=== PATIENT | female | born 1990 | race Caucasian/White ===

== ENCOUNTER 2017-03-10 01:45 | Inpatient (IN) ==
[2017-03-10] MEDS ORDERED: Ringers Solution, Lactated 1,000 ML ONE (02:08)
[2017-03-10] MEDS ORDERED: Oxytocin 20 units/ LR 1000 mL 20 UNIT/1,000 ML BAG IVC ONE ×2 (03:32→05:38)
[2017-03-10] MEDS ORDERED: Naloxone 0.4 MG/ML INJ IVP PRN (04:25)
[2017-03-10] MEDS ORDERED: Ringers Solution, Lactated 1,000 ML IVC SCH (04:30)
--- NOTE | 2017-03-10 04:36 | OB/GYN History & Physical ---
Date of Encounter: 03/10/17 Time of Encounter: 04:33 Assessment and Plan (1) 38 weeks gestation of Current visit: Yes Status: Acute Patient admitted for delivery (2) Spontaneous onset of labor Current visit: Yes Status: Acute Admitted for delivery Patient requests to be discharged home maile following delivery History of Present Illness Chief complaint: Spontaneous labor HPI: Ms. vernon is a 26 year old female that presented to labor and delivery 10 cm dilated. Patient had been at the birthing center with chain sales consultant and had been complete and pushed there for 2-3 hours and BP started to elevate some chain sales consultant felt she should bring patient to hospital for delivery. Patient's water SROM at 2046 clear and a moderate amount of fluid. Patient had care and brought records. Blood type: A+ and GBS was negative. Past Med Surg Social Fam HX - Past Medical History Source: patient Medical history: no medical history Psychiatric history: no psych history - Past Surgical History Surgical History: no surgical history - Social History Smoking Status: Never smoker Smokeless Tobacco Status: No Alcohol use: none Drug use: none Current living situation: Home - Independent Activity Level: Independent ambulation Recent Out of Country Travel Within the Last 8 Weeks: No Exposure or Possible Exposure to Illness During Travel: No Obstetrical History - Pregnancies : 1 Para: 0 Term: 0 : 0 Ab's: 0 Livin Review of System OB - Constitutional Constitutional ROS IM: no chills, no fever(s) - Cardiovascular Cardiovascular: no chest pain, no irregular heart rhythm, no palpitations, no pedal edema, no rapid heart rate, no syncope - Respiratory Respiratory: no cough - Gastrointestinal Gastrointestinal: no diarrhea, no heartburn, no nausea, no vomiting - Genitourinary Genitourinary: no abnormal vaginal bleeding, no dysuria, no flank pain Exam - Constitutional Constitutional: well developed, well nourished, average body habitus - HEENT HEENT: Normocephaly, Mucus Membranes Moist - Neck Neck exam: full ROM, supple - Lungs Respiratory exam: CTAB - Cardiovascular Cardiovascular exam: RRR, +S1, +S2 - Abdomen Abdomen: Present: bowel sounds normal, gravid, non tender - Extremities Extremities exam: full ROM, normal capillary refill, normal inspection Deep Tendon Reflex Grade: 2+ Normal - Anus/Rectum Anus/Rectum: Present: normal perianal skin (FHR 140 bpm moderate variability + 15x15 accels no decels noted. Cat. 1 tracing) Results All other labs normal. - VTE Reasons for not Prescribing Prophylaxis: Treatment not Indicated - Low risk for VTE
--- NOTE | 2017-03-10 04:42 | OB/GYN Procedure Note ---
Delivery - Delivery Date: 03/10/17 Provider: Marisa Garcia Intrapartum events: none Delivery induction: none Delivery monitor: external FHT, external uterine Anesthesia: local Estimated Blood Loss: 400 - Infant (s) A Infant Delivery Date: 03/10/17 Delivery Time: 03:32 Presentation: vertex Position: BERTRAND Route of delivery: Gender: Female Viability: Viable Pounds: 8 Ounces: 1 Weight Gram: 3645 kg at 1 minute: 9 at 5 mins: 9 Shoulder Dystocia: not encountered Specimens collected: cord blood Placenta: spontaneous Cord: 3 umbilical vessels - Repair Episiotomy: none Laceration Description: Periurethral (right periurethral repaired with 3-0 vicryl), Perineal - 2nd Degree (repaired with 3-0 vicryl) - Complications Delivery complications: none - Disposition Mom disposition: stable in LDR disposition: stable in LDR - Comments Comments: Called to LDR patient reports urge to push. Patient placed in stirrups and prepped for delivery. Viable female delivered over a second degree perineal laceration. No nuchal, no meconium, or shoulder dystocia was encountered. was placed on maternal abdomen. Cord was cut after pulsation ceased. A right periurethral laceration was repaired with 3-0 vicryl. A second degree laceration was repaired with 3-0 vicryl. Patient tolerated well. Infant was placed skin to skin both mother and infant are stable in LDR. Patient requests discharge home as soon as possible. Patient to be discharged home when stable and voiding without difficulty.
[2017-03-10] MEDS ORDERED: Ibuprofen 600 MG TABLET PO PRN (05:41)
[2017-03-10] MEDS ORDERED: Benzocaine/Menthol 56 GM AEROSOL SPRAY TP PRN (05:41)
[2017-03-10] MEDS ORDERED: Oxytocin 20 units/ LR 1000 mL 20 UNIT/1,000 ML BAG IVC SCH (05:41)
[2017-03-10] MEDS ORDERED: Acetaminophen 325 MG TABLET PO PRN (05:41)
[2017-03-10] MEDS ORDERED: Prenatal Vit/FA 1 EACH TABLET PO SCH (09:00)
[2017-03-10 09:39] VITALS: BP 129/83
--- NOTE | 2017-03-18 08:36 | Discharge Summary ---
Date of Encounter: 03/10/17 Time of Encounter: 05:00 - Discharge Diagnosis (1) 38 weeks gestation of Priority: Secondary Status: Acute (2) Spontaneous onset of labor Priority: Secondary Status: Acute (3) Vaginal delivery Priority: Primary Status: Acute Comments: routine care discharge home after 6 hours if stable per patient request - Discharge Medications Prescriptions: Ibuprofen [Motrin] 600 mg PO Q6HR PRN #60 tab PRN Reason: Pain Docusate [Colace] 100 mg PO BID #60 capsule Home Medications: Docusate [Colace] 100 mg PO BID #60 capsule 03/10/17 [Rx] Ibuprofen [Motrin] 600 mg PO Q6HR PRN #60 tab 03/10/17 [Rx] Allergies/Adverse Reactions: Allergies No Known Allergies Allergy (Verified 03/10/17 05:48) Date of admission: 03/10/17 01:45 Primary care physician: Bindu Doyle MD Consults: 03/10/17 05:41 Consult to Instructional Facilitator [CONS] Routine Comment: Vaginal delivery, consult needed Discharging clinician: Marisa Garcia Anticipated date of discharge: 03/10/17 - Patient Status Disposition: Home, Self-Care Condition: Good - Discharge Instructions Follow Up With: Bindu Doyle MD [Primary Care Provider] - Additional Instructions: Perineal Care: Always wipe front to back Change your pad frequently Use your red bottle with warm water and spray front to back Do not douche, use tampons, have sexual intercourse or put anything in your vagina for 4-6 weeks after delivery Bleeding: Vaginal bleeding can last up to 6 weeks Your menstrual period may return as early as 6 weeks after you are discharged from the hospital Glen/Stitches Care: Vaginal Delivery Vaginal stitches will dissolve within 4-6 weeks Follow perineal care instructions Care Stitches will dissolve on their own If you have glen, they will need to be removed in the doctors office within 5-7 days. You may shower with stitches or glen Drip plan or soapy water over the incision to clean. Pat dry gently with a clean towel. Make sure you completely dry under the skin folds DO NOT USE powders, lotions, rubbing alcohol or hydrogen peroxide on or around your incision. This will slow your wound healing It is normal to have soreness, burning, tingling, itchiness and/or numbness as your incision heals Activity: Rest frequently Do not lift anything heavier than a gallon of milk, up to 10-15 pounds No driving for 1-2 weeks for Vaginal delivery No driving for 2-4 weeks for delivery Take stairs slowly, one at a time Gradually increase your daily activity until you are back to your normal routine Do not exercise until you have had your follow-up appointment Bathing: Take a shower daily Do not take a tub bath for the first 4 weeks Diet: Drink plenty of water and fruit juices Eat a well-balanced diet with foods high in fiber such as fruits and vegetables Depression: Your hormones have a major impact on your feelings and emotions. Hormone imbalance may cause changes in your mood, creating unfamiliar thoughts and actions. Support is available to help you understand and cope with these feelings and mood changes. If you answer yes to any of the following questions, please call your health care provider: Are you having trouble sleeping? Are you feeling isolated? Have you lost your appetite? Are you having thoughts of hurting yourself or others? WARNING SIGNS: Heavy bleeding from the vagina (blood is bright red and soaks a sanitary pad in an hour or less.) Passing a blood clot larger than your fist Discharge from the vagina that has a bad odor Temperature over 100.4 F, or if you feel cold and have chills An episiotomy site that is warm, swollen or oozing. Use a mirror if needed Urination (pee) that is painful, very red and swollen or leaking fluid An incision that is painful, very red and swollen and leaking fluid An incision that has come open Breasts that are painful or full with flu like symptoms Redness, warmth or swelling in the calf of your leg Trouble breathing, dizziness, visual disturbance or faintness *Notify your health care provider immediately or go to the nearest Emergency Room if you experience any of the above signs.* To contact the nurses station 24 hours a day, For non-urgent, routine questions, please call the office at - Diet and Activity Diet: regular diet Hospital Course Reason for admission: active labor Delivery: Episiotomy: none Laceration: 2nd degree, other (right periurethral) Other procedures: none complications: none Discharge diagnosis: IUP at term delivered baby: female Time Attestation: Total time spent providing and/or coordinating discharge services: Time Spent: Less than 30 minutes Exam - Constitutional Vitals: Temp Pulse Resp BP Pulse Ox 97.7 F 98 16 129/83 97 03/10/17 09:00 03/10/17 09:00 03/10/17 09:00 03/10/17 09:00 03/10/17 08:00
== END 2017-03-10 14:24 | disposition home or self-care (01) | DRG 775 ==
LOC: 1NENULAB 04:17 → 1NENUOBS 06:50
PROVIDERS: ADMIT Advanced Practice Midwife; ATTEND Advanced Practice Midwife